=== PATIENT | male | born 1990 | race Caucasian/White ===

== ENCOUNTER 2017-08-20 17:00 | Inpatient (IN) | payer MEDICAID ==
[~2017-08-20] VITALS: Ht 175.3 cm; Wt 73.4 kg
[~2017-08-20 17:00] MED LIST: LURA40 PO
[2017-08-20 17:55] LABS: BASOPHILS % (AUTO) 0.4 % (0.0-2.0); HEMATOCRIT 37.7 % (41-53); HEMOGLOBIN 12.3 g/dL (13.5-17.5); LYMPHOCYTES # (AUTO) 1.6 K/uL (1.0-4.8); LYMPHOCYTES % (AUTO) 24.2 % (22.0-44.0); MEAN CORPUSCULAR HEMOGLOBIN 27.1 pg (26.0-34.0); MEAN CORPUSCULAR HGB CONC 32.6 G/dL (31.0-37.0); MEAN CORPUSCULAR VOLUME 83 fL (80-100); MONOCYTES # (AUTO) 0.6 K/uL (0.1-1.0); MONOCYTES % (AUTO) 9.5 % (2.0-9.0); NEUTROPHILS # (AUTO) 4.3 K/uL (1.8-7.7); NEUTROPHILS % (AUTO) 64.9 % (40.0-70.0); PLATELET COUNT (AUTO) 360 K/uL (150-450); RED BLOOD CELL COUNT(AUTO) 4.54 MIL/uL (4.50-5.90); RED CELL DISTRIBUTION WIDTH 15.3 % (11.5-14.5)
[2017-08-20 18:14] LABS: ANION GAP 8 mmol/L (8-16); CALCIUM, TOTAL 8.7 mg/dL (8.8-10.5); CARBON DIOXIDE 30 mmol/L (22-29); CHLORIDE 106 mmol/L (98-107); CREATININE 0.86 mg/dL (0.60-1.30); GLOMERULAR FILTR. RATE CALC > 60 mL/min (>60); GLUCOSE,RANDOM 91 mg/dL (70-110); POTASSIUM 3.5 mmol/L (3.5-5.1); SODIUM SERUM 144 mmol/L (136-145); UREA NITROGEN, BLOOD 14 mg/dL (7-18)
[2017-08-20 18:19] LABS: AMPHET/METH SCREEN,URINE POSITIVE (NEGATIVE); BARBITURATE SCREEN, URINE NEGATIVE (NEGATIVE); BENZODIAZEPINES SCREEN,URINE NEGATIVE (NEGATIVE); CANNABINOID SCREEN,URINE POSITIVE (NEGATIVE); COCAINE SCREEN,URINE NEGATIVE (NEGATIVE); METHADONE SCREEN, URINE NEGATIVE (NEGATIVE); OPIATE SCREEN,URINE NEGATIVE (NEGATIVE)
[2017-08-20 18:20] LABS: ALANINE AMINOTRANSFERASE 21 U/L (12-78); ALBUMIN 3.6 g/dL (3.4-5.0); ALKALINE PHOSPHATASE 64 U/L (46-116); ASPARTATE AMINOTRANSFERASE 22 U/L (15-37); BILIRUBIN,TOTAL 0.1 mg/dL (0.1-1.0); TOTAL PROTEIN, SERUM 7.4 g/dL (6.4-8.2)
[2017-08-20 18:24] LABS: PHENCYCLIDINE SCREEN,URINE NEGATIVE (NEGATIVE)
[2017-08-20] MEDS ORDERED: HALOPERIDOL 5 MG TABLET PO ONE (20:00)
[2017-08-20] MEDS ORDERED: LORazepam 2 MG TABLET PO ONE (20:00)
[2017-08-20] MEDS ORDERED: ZOLPIDEM TARTRATE 10 MG TABLET PO PRN (20:00)
[2017-08-21 00:51] VITALS: BP 113/58
[2017-08-21 07:21] LABS: CHOL/HDL RATIO 3.5 (4.2-7.3)
[2017-08-21] MEDS: LORazepam 2 MG TABLET PO PRN (14:22)
[2017-08-21] MEDS: RisperiDONE 1 MG TABLET PO SCH (20:38)
[2017-08-22 07:38] LABS: CHOL/HDL RATIO 3.4 (4.2-7.3); FREE T4 (FREE THYROXINE) 0.9 ng/dL (0.76-1.46); THYROID STIMULATING HORMONE 0.85 uIU/mL (0.36-3.74)
[2017-08-22 07:45] LABS: HEMOGLOBIN A1C 5.2 % (4.5-6.2)
[2017-08-22 08:42] VITALS: BP 134/72
[2017-08-22] MEDS: HALOPERIDOL 5 MG TABLET PO PRN (09:33)
[2017-08-22] MEDS: LORazepam 2 MG TABLET PO PRN (09:33)
[2017-08-22] MEDS: RisperiDONE 1 MG TABLET PO SCH ×2 (09:33→20:13)
[2017-08-22 09:39] LABS: FOLATE SERUM 8.1 ng/mL (5.4-)
[2017-08-22 16:47] VITALS: BP 100/54
[2017-08-23] MEDS: HALOPERIDOL 5 MG TABLET PO PRN (08:28)
[2017-08-23] MEDS: LORazepam 2 MG TABLET PO PRN (08:28)
[2017-08-23] MEDS: RisperiDONE 1 MG TABLET PO SCH (08:28)
[2017-08-23 09:16] VITALS: BP 120/76
[2017-08-23 17:00] VITALS: BP 107/53
[2017-08-23] MEDS: DIVALPROEX SODIUM 500 MG DR TABLET PO SCH (21:48)
[2017-08-23] MEDS: RisperiDONE 2 MG TABLET PO SCH (21:48)
[2017-08-24 06:41] VITALS: BP 131/69
[2017-08-24 08:38] VITALS: BP 133/77
[2017-08-24] MEDS: DIVALPROEX SODIUM 500 MG DR TABLET PO SCH ×2 (09:25→20:26)
[2017-08-24] MEDS: RisperiDONE 2 MG TABLET PO SCH ×2 (09:25→20:22)
[2017-08-24] MEDS: LORazepam 2 MG TABLET PO PRN (16:20)
[2017-08-25 08:16] VITALS: BP 125/79
[2017-08-25] MEDS: LORazepam 2 MG TABLET PO PRN (09:27)
[2017-08-25] MEDS: RisperiDONE 2 MG TABLET PO SCH ×2 (09:27→20:21)
[2017-08-25] MEDS: DIVALPROEX SODIUM 500 MG DR TABLET PO SCH ×2 (09:27→20:21)
[2017-08-25 22:06] VITALS: BP 135/73
[2017-08-26 08:37] VITALS: BP 130/81
[2017-08-26] MEDS: DIVALPROEX SODIUM 500 MG DR TABLET PO SCH ×2 (09:25→20:16)
[2017-08-26] MEDS: RisperiDONE 2 MG TABLET PO SCH ×2 (09:25→20:15)
[2017-08-26] MEDS: LORazepam 2 MG TABLET PO PRN (16:14)
[2017-08-26] MEDS: HALOPERIDOL 5 MG TABLET PO PRN (16:14)
[2017-08-26 17:05] VITALS: BP 121/70
[2017-08-27 08:30] VITALS: BP 125/71
[2017-08-27] MEDS: DIVALPROEX SODIUM 500 MG DR TABLET PO SCH ×2 (09:14→20:38)
[2017-08-27] MEDS: RisperiDONE 2 MG TABLET PO SCH ×2 (09:14→20:38)
[2017-08-27] MEDS: HALOPERIDOL 5 MG TABLET PO PRN (16:32)
[2017-08-27] MEDS: LORazepam 2 MG TABLET PO PRN (16:32)
[2017-08-27 16:38] VITALS: BP 108/60
[2017-08-28 09:10] VITALS: BP 118/67
[2017-08-28] MEDS: CHOLECALCIFEROL (VIT D3) 1,000 UNITS TABLET PO SCH (10:19)
[2017-08-28] MEDS: DIVALPROEX SODIUM 500 MG DR TABLET PO SCH ×2 (10:20→20:01)
[2017-08-28] MEDS: RisperiDONE 2 MG TABLET PO SCH ×2 (10:20→20:01)
[2017-08-28] MEDS: HALOPERIDOL 5 MG TABLET PO PRN (16:36)
[2017-08-28] MEDS: LORazepam 2 MG TABLET PO PRN (16:36)
[2017-08-28 17:26] VITALS: BP 113/67
[2017-08-29] MEDS ORDERED: RISP2 PO (09:07)
[2017-08-29] MEDS ORDERED: DIVA500T35 PO (09:07)
[2017-08-29] MEDS ORDERED: CHOL50004 PO (09:07)
[2017-08-29] MEDS: RisperiDONE 2 MG TABLET PO SCH (09:55)
[2017-08-29] MEDS: DIVALPROEX SODIUM 500 MG DR TABLET PO SCH (09:55)
[2017-08-29] MEDS: CHOLECALCIFEROL (VIT D3) 1,000 UNITS TABLET PO SCH (09:55)
[2017-08-29 10:25] VITALS: BP 129/74
== END 2017-08-29 10:30 | disposition home or self-care (01) | DRG 750 ==
LOC: EMS 17:51 → 3EI 21:00
DX: F25.0 Schizoaffective disorder, bipolar type (principal); Z59.0 Homelessness; F15.10 Other stimulant abuse, uncomplicated; E87.6 Hypokalemia; D64.9 Anemia, unspecified; F12.10 Cannabis abuse, uncomplicated; Z79.899 Other long term (current) drug therapy
CPT/HCPCS: 80074; 82306; 82607; 82746; 83036; 84439; 84443; 99285; G0480